=== PATIENT | male | born 1960 | race Caucasian/White ===

== ENCOUNTER 2016-12-08 04:42 | Emergency (ER) | payer OTHER ==
[~2016-12-08] VITALS: Ht 177.8 cm; Wt 106.6 kg
[2016-12-08 04:43] VITALS: BP_SYST 152
--- NOTE | 2016-12-08 04:43 | NUR ---
Patient to ER bed 6 to gown for evaluation. Side rails up. Report given to Darlene ORTEGA.
--- NOTE | 2016-12-08 04:52 | NUR ---
ER MD Bustos at bedside evaluating the patient
--- NOTE | 2016-12-08 04:55 | NUR ---
Note undone in EDM - 12/08/16 at 0519 by NATALYA Patient to ER C/O right lower and foot pain 12/30. Patient states that he was moving a metal cabinet using a luli when the metal cabinet fell. Long medial abrasion 30 cm under the knee, no bleeding, and reddness and mild swelling to anterior right foot. Able to wiggle toes, sensory intact, cap refill intact. AAOx4, unlabored breathing, no signs of acute distress.
--- NOTE | 2016-12-08 04:55 | NUR ---
Patient to ER C/O right lower and foot pain 12/30. Patient states that he was moving a metal cabinet using a luli when the metal cabinet fell. Long medial abrasion 3 cm under the knee, no bleeding. Reddness and mild swelling to anterior right foot. Able to wiggle toes, sensory intact, cap refill intact. AAOx4, unlabored breathing, no signs of acute distress.
--- NOTE | 2016-12-08 05:14 | NUR ---
Radiology at bedside with portable for Xrays.
[2016-12-08] MEDS ORDERED: DIPH-TET-PERTUS Vaccine 0.5 ML VIAL (ADACEL) I.M. ONE (05:15)
[2016-12-08 06:10] VITALS: BP_SYST 127
--- NOTE | 2016-12-08 06:10 | NUR ---
Patient given written and verbal discharge instructions and verbalizes understanding. ER MD Bustos discussed with patient the results and treatment provided. Patient in stable condition. ID arm band removed. Rx of motrin given. Patient educated on pain management and to follow up with PMD. Pain Scale 0/10. Opportunity for questions provided and answered.
== END 2016-12-08 06:10 | disposition home or self-care (01) ==
LOC: SED 04:42
DX: S80.11XA Contusion of right lower leg, initial encounter (principal); S00.511A Abrasion of lip, initial encounter; S90.811A Abrasion, right foot, initial encounter; E11.9 Type 2 diabetes mellitus without complications; W20.8XXA Other cause of strike by thrown, projected or falling object, initial encounter; Y93.89 Activity, other specified; Y92.89 Other specified places as the place of occurrence of the external cause; Y99.8 Other external cause status
CPT/HCPCS: 73552; 73590-TC; 90715; 99284